=== PATIENT | female | born 1940 | race Caucasian/White ===

== ENCOUNTER → 2016-09-22 | Outpatient (CLI) | payer OTHER ==
[~2016-09-22] MED LIST: AMITRIPTYLINE H75 MG PO; BENICAR PO; CALTRATE 600+D PO; CENTRUM PO; FOSAMAX PO; LIPITOR20 MG PO; METOPROLOL TART25 MG PO; PRILOSEC PO; ZESTRIL10 MG PO
--- NOTE | ~2016-09-22 | BD1 ---
[facility] A Service of [facility] & [facility] RADIOLOGY TEXT RESULTS PATIENT: JANIS MURPHY LOCATION: [facility] : 44 UNIT #: [id number] AGE: [address]: Marcel Brothers MD SEX: F ORDER DR: [id number] [facility] [address] [place], [place] [address] [id number] O MR#: [id number] Acc #: [id number] NAME: JANIS MURPHY : 1940 SEX: F STUDY DATE/TIME: 09/22/2016 14:15 UNIT: [facility] ROOM: STUDY DESCRIPTION: BD Dexa Bone Dens 1+ Site Attending Physician: Marcel Brothers M.D. Referring Physician: Marcel Brothers M.D. Ordering Physician: Marcel Brothers M.D. Primary Care Physician: Marcel Brothers M.D. MEDICAL IMAGING REPORT This report is preliminary unless electronic signature is present EXAM DXA scan 09/22/2016 HISTORY Status post menopause with history of hormone replacement therapy. Osteopenia. Hysterectomy at age 44. Arthritis. Hypertension with blood pressure medication for 10 years. Family history of osteoporosis in mother. Smoking history for 26 years. FINDINGS Bone mineral density in the lumbar spine from L1-L4 is 0.764 g/cm2 which is 2.6 standard deviations below the mean when compared to the young adult reference population which is characteristic of osteoporosis. This is 0.2 standard deviations below the mean when compared to the age-matched population. Compared with 09/10/2014, there has been an increase in bone mineral density in the lumbar spine of 7.6%. Bone mineral density in the left femoral neck was 0.6 g/cm2 which is 2.2 standard deviations below the mean when compared to the young adult reference population which is characteristic of osteopenia. This is 0.2 standard deviations below the mean when compared to the age-matched population. Compared with 09/10/2014, there has been a decrease in bone mineral density in the left hip of 1.3%. IMPRESSION Bone mineral density in the lumbar spine characteristic of osteoporosis and within the left hip characteristic of osteopenia. Compared with 09/10/2014, there has been an increase in bone mineral density in the lumbar spine and a decrease in bone mineral density in the left hip. Dictated by... David Garcia M.D. [facility] A Service of [facility] RADIOLOGY TEXT RESULTS PATIENT: JANIS MURPHY LOCATION: [facility] : 44 UNIT #: [id number] AGE: [address]: Marcel Brothers MD SEX: F ORDER DR: THIS IS AN ELECTRONICALLY VERIFIED REPORT David Garcia M.D. at 09/25/2016 8:25 AM MARCUS/kezia TD: 09/22/2016 21:47 JOB #: [id number] MEDICAL IMAGING REPORT Page 1 of 1 COPY
== END | disposition home or self-care (01) ==
LOC: CWCC 13:41
DX: Z13.820 Encounter for screening for osteoporosis (principal); M81.0 Age-related osteoporosis without current pathological fracture; M85.88 Other specified disorders of bone density and structure, other site
CPT/HCPCS: 77080